=== PATIENT | male | born 1945 | race Hispanic/Latino ===

== ENCOUNTER 2021-06-05 10:59 | Emergency (ER) | payer MEDICARE ==
[~2021-06-05] VITALS: Ht 162.6 cm; Wt 63.5 kg
[2021-06-05] MEDS ORDERED: TRAM1TAB2 PO (12:27)
[2021-06-05] MEDS ORDERED: HYDROCODONE/ACETAMINOPHEN 5/325 MG TAB PO SCH (12:30)
[2021-06-05 13:28] VITALS: BP 157/72
== END 2021-06-05 13:31 | disposition home or self-care (01) ==
LOC: EDH 10:59
DX: S52.502A Unspecified fracture of the lower end of left radius, initial encounter for closed fracture (principal); W01.0XXA Fall on same level from slipping, tripping and stumbling without subsequent striking against object, initial encounter; Y93.89 Activity, other specified; Y92.096 Garden or yard of other non-institutional residence as the place of occurrence of the external cause; Y99.8 Other external cause status
CPT/HCPCS: 29125; 73110